=== PATIENT | male | born 1995 | race Caucasian/White ===

== ENCOUNTER 2025-01-04 08:32 | Emergency (ER) | payer BC, SELFPAY ==
[2025-01-04 08:36] VITALS: BP 128/93; PULSE 76; RESP 18; TEMP 36.3; O2SAT 96; BMI 38.9
--- NOTE | 2025-01-04 08:45 | ED.GENADULT ---
HPI - General Adult General Chief complaint: Wound/Laceration Stated complaint: Staple removal Time Seen by Provider: 01/04/25 08:42 Source: patient Mode of arrival: ambulatory Limitations: no limitations History of Present Illness HPI narrative: this is a 29-year-old man who presents requesting staple removal. The patient states that 8 days prior to presentation she he experienced head trauma. Patient reports that he has a coughing fit and subsequently down causing him to fall and hit the top of his head. He said he was seen at [facility] and needed 7 bari to close the laceration on top of his head. He reports feeling well at this time. He states no headache or pain. He states no interval trauma or LOC. he states no fevers. He states no cough. He states no chest pain or dyspnea. Related Data Allergies Allergy/AdvReac Type Severity Reaction Status Date / Time No Known Allergies Allergy Verified 01/04/25 08:37 Review of Systems Review of Systems: ROS as per HPI Physical Exam ED Vital Signs: Vital Signs - 24 hr 01/04/25 08:36 Temperature 97.3 F Pulse Rate 76 Respiratory Rate 18 Blood Pressure 128/93 H Pulse Oximetry 96 Oxygen Delivery Method Room Air BMI result Body Mass Index 38.9 Gen: NAD, AOx3 HEENT: NCAT, EOMI, normal conjunctiva CV: RRR Pulm: CTAB, no increased work of breathing GI: Soft, NTND, no rebound, guarding or rigidity Neuro: Grossly non focal Skin: Warm, dry, linear 3.5cm well-healed/approximated wound to midline frontal scalp that is c/d/i without erythema/purulence/TTP and with dried blood/scab formation and with x7 bari Procedures Procedure Narrative Procedure Narrative: Scalp wound cleansed with alcohol pad. x7 bari removed without complication. No bleeding. No dressing applied. Medical Decision Making Medical Decision Making MDM Narrative: Patient is well-appearing and in no acute distress. Stapled removed without complication. Discussed ongoing wound care recommendations and expectant management. There is no indication for further emergent evaluation in this otherwise well-appearing patient as above. Patient is provided written and verbal instructions, educational materials, recommendations for outpatient follow-up, strict return precautions and teach back is performed. Patient states understanding and agreement with plan of care. Patient is discharged home in stable and improved condition. Admission/Observation Consideration of admission/observation: Escalation of care including admission/observation considered Discharge Plan Discharge Clinical Impression: Encounter for staple removal Patient Disposition: Home, Self-Care Instructions: Stitches Removal (ED) Additional Instructions: Your bari were removed today. Please continue to keep area cleaning by washing daily with soap/shampoo and water. Please apply a triple antibiotic ointment such as Neosporin 2-3x per day. Follow up with your primary care doctor in 5-7 days. Return to the emergency room with any new symptoms, concerns or injuries. Print Language: Welsh
[2025-01-04 09:01] VITALS: BP 128/93; PULSE 76; RESP 18; TEMP 36.3; O2SAT 96
--- OUTSIDE RECORDS SUMMARY | 2025-01-04 09:04 | XMS_ITS | Clinical Summary ---
Author Organization [facility] Address [address] [place] [address] Care Team Providers Care Ui Lead Developer Name Role Phone Ashley Arriaga MD Primary Care Provider Un available Mo Celeste MD Unavailable [phone] Allergies No known active allergies Medications Medication Sig Dispensed Refills Start Date End Date Status ibuprofen (ADVIL,MOTRIN) 200 MG tablet Take 1 Tablet by mouth every 6 hours as needed. 0 Active Active Problems Problem Noted Date DURANT (dyspnea on exertion) 02/03/2023 NO ACTIVE MEDICAL PROBLEMS 06/21/2019 Immunizations Name Administration Dates Next Due Influenza Vaccine-preservati ve Free-quadrivalent 4 Years 06/21/2019 Tdap 06/21/2019 Family History Medical History Relation Name Comments Obesity Father Thyroid Disorder Mother Relation Name Status Comments Father Alive Mother Alive Social History Tobacco Use Types Packs/Day Years Used Date Smoking Tobacco: Some Days Cigarettes Passive Smoke Exposure: Past Smokeless Tobacco: Never Tobacco Cessation:Ready to Q uit: Not Asked; Counseling Given: Not Answered Comments:A few hooka socially Alcohol Use Standard Drinks/Week Comments Yes 0 (1 standard drink = 0.6 oz pur e alcohol) social Sex Assigned at Date Recorded Not on file Job Start Date Occupation Industry Not on file Not on file Not on file Last Filed Vital Signs Vital Sign Reading Time Taken Comments Blood Pressure 123/66 12/24/2022 3:53 PM EDT Pulse 69 12/24/2022 3:53 PM EDT Temperature 35.9 ??C (96.6 ??F) 12/24/2022 3:53 PM ED T Respiratory Rate 16 12/24/2022 3:53 PM EDT Oxygen Saturation 98% 09/08/2021 1:03 PM EST RA Inhaled Oxygen Concentration - - Weight 110.4 kg (243 lb 6.4 oz) 12/24/2022 3:53 PM EDT Height 170.2 cm (5' 7 ) 12/24/2022 3:53 PM EDT Body Mass Index 38.12 12/24/2022 3:53 PM EDT Plan of Treatment Health Maintenance Due Date Last Done Comments Covid-19 Vaccine (#1) 04/13/1996 CHOLESTEROL SCREENING 06/21/2024 06/21/2019 BMI CHECK/ADVISE 08/29/2024 12/24/2022, , 09/08/2021, Additional history exists DEPRESSION SCREENING/FOLLOWUP 08/29/2024 (Completed), 06/21/2019 SOCIAL NEEDS SCREENING 08/29/2024 (Completed), 06/21/2019 INFLUENZA (Season Ended) 2025 06/21/2019 BASELINE HEALTH EXAM 18-39 12/25/202712/24, 06/21/2019, 06/21/2019 DTAP/TDAP/TD (2 - Td or Tdap) 06/21/2029 06/21/2019 PNEUMOCOCCAL VACCINE FOR HIG H RISK PATIENTS (#1) 2060 Care Teams Ui Lead Developer Relationship Specialty Start Date End Date Ashley Arriaga MD PCP - General Internal Medicine 11/22/22 Mo Celeste MD Specialist Cardiology 11/26/22
--- OUTSIDE RECORDS SUMMARY | 2025-01-04 09:04 | XMS_ITS | Encounter Summary ---
Author Organization [facility] Address [address] [place] [address] Care Team Providers Care Debate Director Name Role Phone Loly Hitchcock MD Primary Care Provide r Unavailable Ashley Arriaga MD Primary Care Provider Un available Mo Celeste MD Unavailable [phone] Reason for Visit * Reason Onset Date Comments radiology 09/08/2021 Knee Xray Encounter Details Date Type Department Care Team Description 09/08/2021 Telephone Medicine/Pediatrics - [address] [phone] Audrey Neves PA-C [address] [place] [address] radiology (Knee Xray) Social History Tobacco Use Types Packs/Day Years Used Date Smoking Tobacco: Never Smokeless Tobacco: Never Alcohol Use Standard Drinks/Week Comments No 0 (1 standard drink = 0.6 oz pur e alcohol) social Sex Assigned at Date Recorded Not on file Job Start Date Occupation Industry Not on file Not on file Not on file COVID-19 Exposure Response Date Recorded In the last month, have you been in contact with someone who was confirmed or suspected to have Coronavirus / COVID-19? No / Unsure 09/08/2021 12:57 PM EST documented as of this encounter Miscellaneous Notes * Telephone Encounter - Jordan Varela - 09/08/2021 4:19 PM EST Left detailed voice message for patient to call back or f/u prn. *If pt calls back, knee xray normal - no fractures or abnormalities. Continue with PT referral, knee brace & medication. Patient can call back prn, or await referrals call for PT.* documented in this encounter Plan of Treatment Not on file documented as of this encounter Visit Diagnoses Not on filedocumented in this encounter Care Teams Debate Director Relationship Specialty Start Date End Date Loly Hitchcock MD PCP - General Internal Medicine 02/26/19 Ashley Arriaga MD PCP - General Internal Medicine 11/22/22 Mo Celeste MD Specialist Cardiology 11/26/22 documented as of this encounter
--- OUTSIDE RECORDS SUMMARY | 2025-01-04 09:04 | XMS_ITS | Encounter Summary ---
Author Organization [facility] Address [address] [place] [address] Care Team Providers Care External Grinder Name Role Phone Loly Hitchcock MD Primary Care Provide r Unavailable Ashley Arriaga MD Primary Care Provider Un available Mo Celeste MD Unavailable [phone] Reason for Visit * Reason Onset Date Comments TEST RESULTS 08/15/2020 Letter 08/15/2020 Encounter Details Date Type Department Care Team Description 08/15/2020 Telephone Adult Medicine [address] [address] Loly Hitchcock MD TEST RESULTS; Letter Social History Tobacco Use Types Packs/Day Years [...] have Coronavirus / COVID-19? No / Unsure 08/11/2020 2:34 PM EST documented as of this encounter Miscellaneous Notes * Telephone Encounter - Dolores Avelar M.A. - 08/18/2020 10:56 AM EST This has been printed and mailed to patient's home address. * Telephone Encounter - Bob Horowitz PA-C - 08/15/2020 4:17 PM EST Okay to print this out. Does not need my signature just print out lab results and state he is free from STDs. Thank you * Telephone Encounter - Paige ToroP.N. - 08/15/2020 4:13 PM EST Pt looking for letter Stating he is negative for std and print out ,do you want to do? * Telephone Encounter - Alla Silva - 08/15/2020 3:03 PM EST Pt is calling. He would like to picker and packer his recent STD test results. He would also like a letter written stating that he is negative for all STDs. Please advise. documented in this encounter Plan of Treatment Not on file documented as of this encounter Visit Diagnoses Not on filedocumented in this encounter Care Teams External Grinder Relationship Specialty Start Date End Date Loly Hitchcock MD PCP - General Internal Medicine 02/26/19 Ashley Arriaga MD PCP - General Internal Medicine 11/22/22 Mo Celeste MD Specialist Cardiology 11/26/22 documented as of this encounter
--- OUTSIDE RECORDS SUMMARY | 2025-01-04 09:04 | XMS_ITS | Encounter Summary ---
Author Organization [facility] Address [address] [place] [address] Care Team Providers Care Phone Banker Name Role Phone Loly Hitchcock MD Primary Care Provide r Unavailable Ashley Arriaga MD Primary Care Provider Un available Mo Celeste MD Unavailable [phone] Encounter Details Date Type Department Care Team Description 09/05/2019 Release of Information Medical Records [address] [place] [address] Abstract, Provider Social History Tobacco Use Types Packs/Day Years Used Date Smoking Tobacco: Never Smokeless Tobacco: Never Alcohol Use Standard Drinks/Week Comments No 0 (1 standard drink = 0.6 oz pur e alcohol) social Sex Assigned at Date Recorded Not on file Job Start Date Occupation Industry Not on file Not on file Not on file documented as of this encounter Plan of Treatment Not on file documented as of this encounter Visit Diagnoses Not on filedocumented in this encounter Care Teams Phone Banker Relationship Specialty Start Date End Date Loly Hitchcock MD PCP - General Internal Medicine 02/26/19 Ashley Arriaga MD PCP - General Internal Medicine 11/22/22 Mo Celeste MD Specialist Cardiology 11/26/22 documented as of this encounter
--- OUTSIDE RECORDS SUMMARY | 2025-01-04 09:04 | XMS_ITS | Clinical Summary ---
Author Organization [address] [facility] Address [address] [place] [phone] Phone Care Team Providers Care Laundry Presser Name Role Phone Freya Sousa MD Primary Care Provider [phone] Allergies No known active allergies Medications ibuprofen (ADVIL,MOTRIN) 200 mg tablet Take 1 tablet (200 mg total) by mouth every 6 (six) hours if needed. Active Active Problems Problem Noted Date Diagnosed Date Class 1 obesity 12/26/2024 DURANT (dyspnea on exertion) 02/03/2023 Encounters Date Type Department Care Team Description 12/28/2024 Telephone Internal Medicine - [address] [phone] Freya Sousa MD Hospital Follow-up 12/27/2024 12:00 PM EDT Office Visit Internal Medicine - [address] [phone] Benjamin Santamaria NP Laceration of scalp, initial encounter (Primary Dx); Dizziness from Last 3 Months Immunizations Name Administration Dates Next Due DTaP (Infanrix) 6wks to less than 7yo ,09/16/1997,06/16/1996,03/16,01/15/1996 HPV, Quadrivalent 06/17/2015, 3,07/19/2012,06/08 Hep B, Unspecified 03/16/1996,01/15/1996, 996 HiB 09/16/1997,03/16/1996,01/15/1996 IPV Inactivated polio (Ipol) 6wks and older 12/16/1999,06/16/1996,03/16/1996 Influenza Quadravalent, MDCK , 0.5ml, preservative free (Flucelvax) 6mo and older 06/21/2019 Influenza Whole 06/08/2011 Influenza trivalent, with pr eservative (Fluzone; Afluria) 6mo and older 09/21/2017,06/18/2016,06/17/2015,07/11,07/19/2012 MMR, measles mumps and rubel la Live (Priorix; M-M-R II) 12mo and older 12/16/1999,09/16/1997 Meningococcal Polysaccharide 07/19/2012,08/09/20 08 Pneumococcal Conjugate Vacci ne, 7 Valent 06/13/2000 Pneumococcal conjugate 13 va lent (Prevnar 13, PCV13) 2mo and older 09/16/1997,01/15/1996 Tdap Tetanus diptheria acell ular pertussis (Boostrix; Adacel) 7yo and older 06/21/2019,08/09/2008 Varicella live (Varivax) 12m o and older 11/14/1997 Surgical History Surgery Date Site/Laterality Comments OTHER SURGICAL HISTORY PROCEDURE: DENIES PREVIOUS SURGERY Medical History Medical History Date Comments Knee pain DX:Knee pain Back pain DX:Back pain Family History Medical History Relation Name Comments Obesity Father Thyroid disease Mother Relation Name Status Comments Father Alive Mother Alive Social History Tobacco Use Types Packs/Day Years Used Date Smoking Tobacco: Some Days Smokeless Tobacco: Never Tobacco Cessation:Ready to Q uit: Not Asked; Counseling Given: Not Answered Alcohol Use Standard Drinks/Week Comments Yes 0 (1 standard drink = 0.6 oz pur e alcohol) Sex and Gender Information Value Date Recorded Sex Assigned at Not on file Legal Sex Male 2:34 PM EST Gender Identity Male 12/20/2024 8:59 PM EDT Sexual Orientation Not on file Obstetrics History Last Filed Vital Signs Vital Sign Reading Time Taken Comments Blood Pressure 133/72 12/27/2024 12:15 PM EDT au to Pulse 68 12/27/2024 12:15 PM EDT Temperature 36.9 ??C (98.5 ??F) 12/27/2024 12:15 PM E DT Respiratory Rate - - Oxygen Saturation 96% 12/27/2024 12:15 PM EDT Inhaled Oxygen Concentration - - Weight 116 kg (256 lb 9.6 oz) 12/27/2024 12:15 P M EDT Height 170.2 cm (5' 7 ) 12/27/2024 12:15 PM EDT Body Mass Index 40.19 12/27/2024 12:15 PM EDT Plan of Treatment Upcoming Encounters Date Type Department Care Team (Late st Contact Info) Description 01/07/2025 10:15 AM EDT [facility] [address] [place] [phone] Jude Cintron PA [address] [place] [address] Health Maintenance Due Date Last Done Comments Hepatitis B Vaccines (4 of 4 - 4-dose series) 04/13/1996 03/16/1996, 01/15/1996, 1995 Pneumococcal Vaccine: Pediatrics (0 to 5 Years) and At-Risk Patients (6 to 64 Years) (1 of 1 - PPSV23) 2001 06/13/2000, 09/16/1997, 01/15/1996 Depression Screening 07/28/2022 HIV Screening 07/28/2022 Hepatitis C Screening 07/28/2022 Social Influencers of Health Screening 07/28/2022 COVID-19 Vaccine ( season) 2024 04/14/2022, 10/03/2021, 09/01/2021 Cholesterol Screening (Lipid Panel) 06/21/2024 06/21/2019 Influenza Vaccine (Season Ended) 2025 06/21/2019, 09/21/2017, 06/18/2016, Additional history exists DTaP,Tdap,and Td Vaccines (8 - Td or Tdap) 06/21/2029 06/21/2019, 08/09/2008, 12/16/1999, Additional history exists HIB Vaccines Completed 09/16/1997, 02/26, 01/15/1996 Varicella Vaccines Aged Out 11/14/1997 No longer eligible based on patient's age to complete this topic IPV Vaccines Completed 12/16/1999, 05/29, 03/16/1996 MMR Vaccines Completed 12/16/1999, 09/16/1997 Meningococcal ACWY Vaccine Aged Out 07/19/2012, No longer eligible based on patient's age to complete this topic HPV Vaccines Completed 06/17/2015, 06/29, 07/19/2012, Additional history exists Hepatitis A Vaccines Aged Out No long er eligible based on patient's age to complete this topic Meningococcal B Vaccine Aged Out No l onger eligible based on patient's age to complete this topic RSV Immunization Patients Under 20 months Aged Out No longer eligible based on patient's age to complete this topic Procedures Procedure Name Priority Date/Time Associated Diagnosis Comments LIPID PANEL Routine 06/21/2019 from Last 3 Months or Most Recently Relevant to Health Maintenance Results * Lipid panel (06/21/2019) LDL/HDL Ratio 4 Triglycerides 127 mg/dL Cholesterol 137 mg/dL HDL 36 mg/dL LDL Cholesterol 76 mg/dL Blood Venous blood specimen / Unknown [facility] Provider LAB BLOOD ORDERABLES Ely l Result from Last 3 Months or Most Recently Relevant to Health Maintenance Insurance BLUE CROSS - ID Care Teams Laundry Presser Relationship Specialty Start Date End Date Freya Sousa MD [address] [facility] [place] [phone] PCP - General Internal Medicine 11/12/24
--- OUTSIDE RECORDS SUMMARY | 2025-01-04 09:04 | XMS_ITS | Encounter Summary ---
Author Organization [employer] [facility] Address [address] [place] [address] Care Team Providers Care Site Interpreter Name Role Phone Ashley Arriaga MD Primary Care Provider Un available Mo Celeste MD Unavailable [phone] Encounter Details Date Type Department Care Team Description 02/07/2023 SCAN Medical Records [address] [place] [address] [facility] Social History Tobacco Use Types Packs/Day Years Used Date Smoking Tobacco: Some Days Cigarettes Passive Smoke Exposure: Past Smokeless Tobacco: Never Comments:A few hooka sociall y Alcohol Use Standard Drinks/Week Comments Yes 0 [...] on filedocumented in this encounter Care Teams Site Interpreter Relationship Specialty Start Date End Date Ashley Arriaga MD PCP - General Internal Medicine 11/22/22 Mo Celeste MD Specialist Cardiology 11/26/22 documented as of this encounter
== END 2025-01-04 09:02 | disposition home or self-care (01) ==
PROVIDERS: Emergency Provider Emergency Medicine
DX: Z48.02 Encounter for removal of sutures (principal); S01.01XD Laceration without foreign body of scalp, subsequent encounter; W18.30XD Fall on same level, unspecified, subsequent encounter
CPT/HCPCS: 99282